=== PATIENT | male | born 1995 | race Caucasian/White ===

== ENCOUNTER 2019-09-03 08:58 | Emergency (ER) | payer MEDICAID ==
[~2019-09-03] VITALS: Ht 185.4 cm; Wt 78.5 kg
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
--- NOTE | 2019-09-03 09:14 | NUR ---
AT BEDSIDE FOR EVAL.
[2019-09-03] MEDS ORDERED: HYDROMORPHONE 1 MG/1 ML DISP.SYRIN ONE (09:20)
[2019-09-03] MEDS ORDERED: PROPOFOL 0 ML ONE (09:20)
[2019-09-03] MEDS ORDERED: PROPOFOL 20 ML IV ONE (09:21)
--- NOTE | 2019-09-03 09:23 | NUR ---
PROPERTY INSURANCE CLAIMS EXAMINER AT BEDSIDE FOR XRAY.
[2019-09-03] MEDS ORDERED: PROPOFOL 200 MG/20 ML VIAL IV ONE ×2 (09:30→10:30)
[2019-09-03] MEDS ORDERED: HYDROMORPHONE 1 MG/1 ML DISP.SYRIN IV ONE ×2 (09:30→10:30)
--- NOTE | 2019-09-03 09:53 | NUR ---
RT, EMT AND MD AT BEDSIDE FOR MODERATE SEDATION.
--- NOTE | 2019-09-03 10:05 | NUR ---
ORTHO PAGED AWAITING CALL BACK.
--- NOTE | 2019-09-03 10:07 | NUR ---
SHORT LEG CAST AND STIR UP APPLIED BY PERSONAL CARER.
--- NOTE | 2019-09-03 10:09 | NUR ---
RT note Conscious sedation done, pt was placed on 2L nasal cannula per Dr. Prince request. Pt is awake and alert, no SOB or respiratory distress noted.
--- NOTE | 2019-09-03 10:11 | NUR ---
HOTEL FRONT OFFICE MANAGER AT BEDSIDE FOR POST REDUCTION XRAY.
[2019-09-03] MEDS ORDERED: HYDROMORPHONE INJ 2 MG/ML DISP.SYRIN ONE (10:31)
--- NOTE | 2019-09-03 10:37 | NUR ---
ORDER FOR DILAUDID 1MG IVP GIVEN. PULLED DILAUDID 2MG AND WASTED 1MG W/ PRIMARY NURSE JUJU ALEXANDRA VALENZUELA.
[2019-09-03 12:48] VITALS: BP 121/68
--- NOTE | 2019-09-03 12:48 | NUR ---
IV removed. Catheter intact and site benign. Pressure and 4x4 applied to site. No bleeding noted. Patient discharged to home in stable condition. Written and verbal after care instructions given. Patient verbalizes understanding of instruction.
== END 2019-09-03 12:51 | disposition home or self-care (01) ==
LOC: EDBD 09:01 → ER 09:01
DX: S82.392A Other fracture of lower end of left tibia, initial encounter for closed fracture (principal); S82.832A Other fracture of upper and lower end of left fibula, initial encounter for closed fracture; W18.09XA Striking against other object with subsequent fall, initial encounter; Y93.51 Activity, roller skating (inline) and skateboarding; Y92.89 Other specified places as the place of occurrence of the external cause; Y99.8 Other external cause status
CPT/HCPCS: 27752; 73590; 73600; 96374; 96375; 99152; 99285; J1170 ×2; J2704; J7030; G0500; J3490